=== PATIENT | male | born 1995 | race African-American/Black ===

== ENCOUNTER 2018-04-17 15:11 | Emergency (ER) | payer BC ==
[2018-04-17 15:40] VITALS: BP 112/74
[2018-04-17] MEDS ORDERED: Tetan/Diph/Pertus SYR(Tdap)* 0.5 ML SYR(BOOSTRIX) use SYR IM ONE (15:56)
[2018-04-17] MEDS ORDERED: Lidocaine 1%* 5 ML VIAL INJ ONE (15:57)
--- NOTE | 2018-04-17 16:20 | RAD ---
HISTORY: r/o FB COMPARISONS: None VIEWS: 2 , Frontal and lateral views of the left hand FINDINGS: BONE DENSITY: Normal. BONES: There is no displaced fracture. JOINTS: There is no arthropathy. There is no radiopaque foreign body ALIGNMENT: There is no dislocation. SOFT TISSUES: Unremarkable. OTHER FINDINGS: None. IMPRESSION: NO ACUTE OSSEOUS INJURY. IF SYMPTOMS PERSIST, RECOMMEND REPEAT IMAGING.
--- NOTE | 2018-04-17 17:00 | ED ---
Laceration/Wound HPI - HPI Summary HPI Summary: 22-year-old male presents for laceration to left hand. States he was carrying a glass aquarium and when he sat down he thinks he cut it on either a piece of glass or a piece of metal. States she does not believe the glass actually broken. Bleeding was controlled with direct pressure. Tetanus status unknown. - History of Current Complaint Stated Complaint: CUT ON HAND Time Seen by Provider: 04/17/18 15:24 Hx Obtained From: Patient Mechanism of Injury: Sharp/Blunt Trauma Onset/Duration: Sudden Onset Current Severity: Moderate Pain Intensity: 6 - Allergy/Home Medications Allergies/Adverse Reactions: Allergies Allergy/AdvReac Type Severity Reaction Status Date / Time No Known Allergies Allergy Verified 04/17/18 15:40 PMH/Surg Hx/FS Hx/Imm Hx Previously Healthy: Yes - Denies significant PMH - Surgical History Hx Anesthesia Reactions: No - Immunization History Date of Tetanus Vaccine: unkown Infectious Disease History: No Infectious Disease History: Denies: Traveled Outside the in Last 30 Days - Family History Family History: Noncontributory - Social History Occupation: Employed Full-time Lives: With Family Alcohol Use: None Substance Use Type: Reports: None Smoking Status (MU): Never Smoked Tobacco Review of Systems Constitutional: Negative Musculoskeletal: Negative Positive: Other - See HPI All Other Systems Reviewed And Are Negative: Yes Physical Exam Vital Signs On Initial Exam: Initial Vitals Temp Pulse Resp BP Pulse Ox 98.4 F 79 16 112/74 98 04/17/18 15:34 04/17/18 15:34 04/17/18 15:34 04/17/18 15:34 04/17/18 15:34 Procedures - Laceration/Wound Repair 1 Location: upper extremity - Left hand Description: Linear Anesthesia: Local, 1.0% - 2 ml Length, Depth and Shape: 2 cm superficial linear laceration over the thenar eminence of the palmar left hand Betadine Prep?: Yes Irrigated w/ Saline (ccs): 500 - Irrigated by RN prior to repair Laceration/Wound Explored: clean, no foreign body removed, Other - Wound explored under bloodless field then cleansed thoroughly with sterile saline and chlorhexidine solution. Closure: Single Layer Suture Type: Nylon - 4 interrupted suture placed using 6-0 ethilon Number of Sutures: 4 Layer Closure?: No Sterile Dressing Applied?: No - Antibiotic ointment applied and clean nonstick dressing applied Diagnostics - Vital Signs Vital Signs Temp Pulse Resp BP Pulse Ox 04/17/18 15:34 98.4 F 79 16 112/74 98 - Laboratory Lab Statement: Any lab studies that have been ordered have been reviewed, and results considered in the medical decision making process. - Radiology No standard instances Xray Interpretation: No Acute Changes Radiology Interpretation Completed By: ED Physician - No FB noted., Radiologist - Order Information: HAND LEFT 2 VWS Accession Number: [id number] CPT: 25617 HISTORY: r/o FB COMPARISONS: None VIEWS: 2 , Frontal and lateral views of the left hand FINDINGS: BONE DENSITY: Normal. BONES: There is no displaced fracture. JOINTS: There is no arthropathy. There is no radiopaque foreign body ALIGNMENT: There is no dislocation. SOFT TISSUES: Unremarkable. OTHER FINDINGS : None. IMPRESSION: NO ACUTE OSSEOUS INJURY. IF SYMPTOMS PERSIST, RECOMMEND REPEAT IMAGING. Laceration Repair Course/Dx - Course Course Of Treatment: 22 year old male with superficial laceration to left hand from aquarium. X-ray was negative for FB. Wound repaired with 4 interrupted sutures using 6-0 Ethilon without complication. Tetanus updated. Wound care and warning symptoms discussed. Patient is to return in 10 days for suture removal. - Clinical Impression Provider Diagnoses: Laceration of left hand Discharge - Sign-Out/Discharge Documenting (check all that apply): Patient Departure All imaging exams completed and their final reports reviewed: Yes - Discharge Plan Condition: Stable Disposition: HOME Patient Education Materials: Care For Your Stitches (ED), Laceration (ED) Forms: *Work Release Referrals: No Primary Care Phys,NOPCP [Primary Care Provider] - Additional Instructions: Your tetanus was updated today. Be sure to notify your primary care provider so that your records can be updated. The numbing medication used to repair your laceration will wear off in approximately 2-3 hours. You may use [id number] acetaminophen (Tylenol) or ibuprofen (see Advil, Motrin) according to directions as needed for pain. Keep the dressing applied today in place for the next 24 hours. Avoid getting this wet. After 24 hours you may remove the dressing and wash your hands and shower as normal. You should avoid submerging the hand under water such as with dishwashing, taking a bath, or swimming until the wound is fully healed. Be sure to gently clean the wound with a mild soap and water at least once daily. Apply a small amount of antibiotic ointment to wound and cover with a dressing. This should be done at least once a day or any time the dressing becomes soiled. You should return in 10 days to have the sutures removed. Watch for signs of infection including fever greater than 100.5 F, redness that spreads, swelling around wound, pain that is not managed with [id number]-mpmohni pain medication, or pus draining from the wound. Seek immediate medical attention should any of these symptoms occur. - Billing Disposition and Condition Condition: STABLE Disposition: Home Images - Images Hands: 1 - 2 cm superficial laceration.
== END 2018-04-17 17:10 | disposition home or self-care (01) ==
LOC: UCEAST 15:11
DX: S61.412A Laceration without foreign body of left hand, initial encounter (principal); W26.9XXA Contact with unspecified sharp object(s), initial encounter; Y93.89 Activity, other specified; Y92.9 Unspecified place or not applicable; Z23 Encounter for immunization
CPT/HCPCS: 12001; 90715; 99201; G0463